=== PATIENT | female | born 1960 | race Caucasian/White ===

== ENCOUNTER → 2017-02-04 | Outpatient (CLI) | payer MEDICARE, OTHER ==
[~2017-02-04] MED LIST: ALLERGY25 M1 PO; CITALOPRAM HBR40 MG PO; FERROUS SULFAT325 M2 PO; GABAPENTIN600 MG PO; MELOXICAM7.5 MG PO; MULTIVITAMINS1 EAC1 PO; PERCOCET 5/325 T1 EA PO; VENTOLIN/PROVE0.5 ML INH; VITAMIN B-1250 MCG PO; XARELTO10 MG PO
[2017-02-04 10:27] LABS: HEMOGLOBIN 15.8 gm/dl (12.3-15.3); RED BLOOD COUNT 5.2 M/UL (4.00-5.10); WHITE BLOOD COUNT 6.7 K/UL (4.5-11.0)
[2017-02-04 10:40] LABS: BUN/CREATININE RATIO 28 (0-10)
== END ==
LOC: OPSV2 09:30
PROVIDERS: Orthopaedic Surgery
DX: Z01.812 Encounter for preprocedural laboratory examination (principal); Z01.810 Encounter for preprocedural cardiovascular examination; Z01.818 Encounter for other preprocedural examination; M17.32 Unilateral post-traumatic osteoarthritis, left knee
CPT/HCPCS: 36415; 71020; 80048; 81001; 85025; 87081; 93005

== ENCOUNTER 2017-02-18 05:50 | Inpatient (IN) | payer MEDICARE, OTHER ==
[~2017-02-18] VITALS: Ht 160 cm; Wt 58.1 kg
[2017-02-18] MEDS ORDERED: MULTIVITAMINS1 EAC1 PO (07:07)
[2017-02-18] MEDS ORDERED: CITALOPRAM HBR40 MG PO (07:08)
[2017-02-18] MEDS ORDERED: MELOXICAM7.5 MG PO (07:08)
[2017-02-18] MEDS ORDERED: GABAPENTIN600 MG PO (07:09)
[2017-02-18] MEDS ORDERED: ALLERGY25 M1 PO (07:09)
[2017-02-18] MEDS ORDERED: VENTOLIN/PROVE0.5 ML INH (07:10)
[2017-02-18] MEDS ORDERED: VITAMIN B-1250 MCG PO (07:10)
[2017-02-18 07:31] LABS: BUN/CREATININE RATIO 24 (0-10)
[2017-02-19 06:01] LABS: HEMOGLOBIN 10.8 gm/dl (12.3-15.3); RED BLOOD COUNT 3.7 M/UL (4.00-5.10); WHITE BLOOD COUNT 6.5 K/UL (4.5-11.0)
[2017-02-19 06:12] LABS: BUN/CREATININE RATIO 20 (0-10)
[2017-02-20 05:51] LABS: HEMOGLOBIN 10.1 gm/dl (12.3-15.3); RED BLOOD COUNT 3.48 M/UL (4.00-5.10); WHITE BLOOD COUNT 6.5 K/UL (4.5-11.0)
[2017-02-20 06:17] LABS: BUN/CREATININE RATIO 18 (0-10)
[2017-02-21 06:29] LABS: HEMOGLOBIN 9.5 gm/dl (12.3-15.3); RED BLOOD COUNT 3.26 M/UL (4.00-5.10); WHITE BLOOD COUNT 6.6 K/UL (4.5-11.0)
[2017-02-21 07:10] LABS: BUN/CREATININE RATIO 20 (0-10)
[2017-02-21] MEDS ORDERED: PERCOCET 5/325 T1 EA PO (10:22)
[2017-02-21] MEDS ORDERED: FERROUS SULFAT325 M2 PO (10:22)
[2017-02-21] MEDS ORDERED: XARELTO10 MG PO (10:23)
== END 2017-02-21 12:41 | disposition home health service (06) | DRG 470 ==
LOC: ZOBSOF 05:50 → M/S 18:08
PROVIDERS: Anesthesiology; ADMIT Orthopaedic Surgery
PROC: 0SRD0J9 Replacement of Left Knee Joint with Synthetic Substitute, Cemented, Open Approach (ICD-10-PCS; principal; 2017-02-18 07:45)
DX: M17.12 Unilateral primary osteoarthritis, left knee (principal); D62 Acute posthemorrhagic anemia; Z51.89 Encounter for other specified aftercare; F41.9 Anxiety disorder, unspecified; F17.210 Nicotine dependence, cigarettes, uncomplicated; Z98.890 Other specified postprocedural states; M54.5 Low back pain; Z79.899 Other long term (current) drug therapy; G89.4 Chronic pain syndrome
CPT/HCPCS: 36415; 73560; 80048; 80053; 84132; 85025; 86850; 86900; 86901; 93005; 94640; 94664; 97116; 97530; 97535; C1776; J0171; J0690; J0735; J1885; J2250; J2274; J2795; J3010; J3370; J3480; J7050; J7120; Q0163

== ENCOUNTER 2020-12-26 02:03 | Inpatient (IN) | payer MEDICARE, OTHER ==
[~2020-12-26] VITALS: Ht 157.5 cm; Wt 56.2 kg
[2020-12-26 17:36] LABS: HEMOGLOBIN 14.2 gm/dl (12.3-15.3); RED BLOOD COUNT 4.81 M/UL (4.00-5.10); WHITE BLOOD COUNT 8.8 K/UL (4.5-11.0)
[2020-12-26 17:50] LABS: BUN/CREATININE RATIO 17 (0-10)
[2020-12-27 03:39] LABS: HEMOGLOBIN 12.2 gm/dl (12.3-15.3); RED BLOOD COUNT 4.18 M/UL (4.00-5.10); WHITE BLOOD COUNT 8.5 K/UL (4.5-11.0)
[2020-12-27 03:57] LABS: BUN/CREATININE RATIO 19 (0-10)
[2020-12-28 04:22] LABS: WHITE BLOOD COUNT 8.5 K/UL (4.5-11.0)
[2020-12-28 04:25] LABS: RED BLOOD COUNT 3.37 M/UL (4.00-5.10)
[2020-12-28 04:37] LABS: BUN/CREATININE RATIO 38 (0-10)
[2020-12-29 11:38] LABS: HEMOGLOBIN 9.3 gm/dl (12.3-15.3); RED BLOOD COUNT 3.13 M/UL (4.00-5.10)
[2020-12-29 11:45] LABS: WHITE BLOOD COUNT 5.7 K/UL (4.5-11.0)
[2020-12-29 11:57] LABS: BUN/CREATININE RATIO 18 (0-10)
--- NOTE | 2020-12-29 12:56 | NUR ---
REPORT GIVEN TO [facility] NURSE. INFORMED PATIENT OF TRANSFER AND AGREEABLE
[2020-12-30 04:50] LABS: HEMOGLOBIN 8.6 gm/dl (12.3-15.3); RED BLOOD COUNT 2.94 M/UL (4.00-5.10)
[2020-12-30 04:51] LABS: WHITE BLOOD COUNT 3.7 K/UL (4.5-11.0)
[2020-12-30 05:18] LABS: BUN/CREATININE RATIO 25 (0-10)
[2020-12-30] MEDS ORDERED: HYDROCODON-ACE1 EAC4 PO (11:28)
[2020-12-30] MEDS ORDERED: ENOXAPARIN40 MG/0.4 SC (11:28)
[2021-01-01 02:34] LABS: HEMOGLOBIN 10.1 gm/dl (12.3-15.3)
[2021-01-01 02:37] LABS: RED BLOOD COUNT 3.43 M/UL (4.00-5.10); WHITE BLOOD COUNT 5.7 K/UL (4.5-11.0)
== END 2021-01-02 14:50 | DRG 480 ==
LOC: M/S 16:13 → MED SURG 4 16:13 → CCU 12-29 13:10 → M/S 12-30 19:46
PROVIDERS: Internal Medicine; Physician Assistant; ADMIT Family Medicine
PROC: 0QS704Z Reposition Left Upper Femur with Internal Fixation Device, Open Approach (ICD-10-PCS; principal; 2020-12-27)
DX: S72.142A Displaced intertrochanteric fracture of left femur, initial encounter for closed fracture (principal); J96.21 Acute and chronic respiratory failure with hypoxia; W01.0XXA Fall on same level from slipping, tripping and stumbling without subsequent striking against object, initial encounter; J44.9 Chronic obstructive pulmonary disease, unspecified; I95.9 Hypotension, unspecified; I10 Essential (primary) hypertension; F41.9 Anxiety disorder, unspecified; E87.6 Hypokalemia; M19.90 Unspecified osteoarthritis, unspecified site; E66.9 Obesity, unspecified; F15.10 Other stimulant abuse, uncomplicated; E86.0 Dehydration; F11.10 Opioid abuse, uncomplicated; F12.10 Cannabis abuse, uncomplicated; K21.9 Gastro-esophageal reflux disease without esophagitis; Z20.822 Contact with and (suspected) exposure to COVID-19; Z96.652 Presence of left artificial knee joint; F17.210 Nicotine dependence, cigarettes, uncomplicated; Z82.49 Family history of ischemic heart disease and other diseases of the circulatory system; Z83.3 Family history of diabetes mellitus; Y92.008 Other place in unspecified non-institutional (private) residence as the place of occurrence of the external cause; Y93.9 Activity, unspecified; Z80.1 Family history of malignant neoplasm of trachea, bronchus and lung; Z68.22 Body mass index [BMI] 22.0-22.9, adult; Z79.899 Other long term (current) drug therapy
CPT/HCPCS: 36415; 36600; 71045; 72170; 73502; 76000; 80048; 80053; 82803; 83605; 85025; 85610; 87040; 87086; 93005; 94760; 97110; 97116; 97116-GP-CQ; 97161; 97164; 97166; 97168; 97530; 97530-GP-CQ; 97535; C1713; J0690; J1100; J1650; J1885; J2001; J2270; J2370; J2405; J2543; J2704; J2795; J3010; J7030; J7120; U0002